=== PATIENT | female | born 1995 | race Asian ===

== ENCOUNTER 2018-12-21 14:41 | Emergency (ER) | payer OTHER ==
[~2018-12-21] VITALS: Ht 157.5 cm; Wt 55.5 kg
[2018-12-21] MEDS ORDERED: ValACYclovir HCL 500 MG TABLET PO ONE (17:15)
[2018-12-21 18:20] VITALS: BP 129/71
== END 2018-12-21 18:52 | disposition home or self-care (01) ==
LOC: EMS 14:42
DX: B00.9 Herpesviral infection, unspecified (principal); R51 Headache